=== PATIENT | female | born 1965 | race Caucasian/White ===

== ENCOUNTER 2020-03-25 15:04 | Outpatient (REF) | payer OTHER, SELFPAY ==
[2020-03-25 15:31] LABS: COVID-19 Test Positive (Negative)
== END 2020-03-25 15:05 | disposition home or self-care (01) ==
LOC: HO.LAB 15:04
PROVIDERS: Visit Provider Internal Medicine
DX: Z20.828 Contact with and (suspected) exposure to other viral communicable diseases (principal)
CPT/HCPCS: 87635

== ENCOUNTER 2020-06-06 12:38 | Outpatient (REF) | payer OTHER, SELFPAY ==
--- NOTE | 2020-06-06 12:48 | MM_ITS ---
EXAMINATION: MM DIAGNOSTIC DIGITAL BREAST TOMOSYNTHESIS, BILATERAL US DIAGNOSTIC ULTRASOUND BREAST, LEFT CLINICAL INFORMATION: 55-year-old with palpable nodule posterior outer left breast, uncertain chronicity. No prior breast imaging. No known family history breast cancer. The lifetime risk of breast cancer based on the Tyrer-Cuzick Model is 11%. COMPARISON: None (current study represents initial baseline exam). TECHNIQUE: Digital breast tomosynthesis is performed in both the craniocaudal and mediolateral oblique views along with computer-aided detection (CAD). Synthesized 2D images are generated from the tomosynthesis. Additional exaggerated left CC view is provided. Ultrasound left breast is targeted to the palpable nodule posterior outer left breast. Patient is able to point to the area of concern at time of imaging. FINDINGS: There are scattered areas of fibroglandular density (ACR BI-RADS breast composition Category b). There is a circumscribed nodule residing close to the skin surface at site of palpable concern posterior outer left breast measuring approximately 1.0 x 0.8 cm. The remainder of the breasts show no significant mass or architectural abnormality or abnormal calcifications. The axilla and skin contours are unremarkable. Ultrasound left breast demonstrates a circumscribed intradermal nodule mildly hypoechoic measuring 1.0 x 0.7 x 0.6 cm at 3:00 position 12 cm from nipple. There is a claw sign interface with the skin. No visible superficial stalk to skin surface. There is mild increased through-transmission of sound. No hyperemia. No edema tracking in soft tissue planes. Results are discussed with the patient at time of visit. The palpable nodule corresponds to an intradermal lesion, likely sebaceous cyst or epidermal cyst. If increasing in size, this would be amenable to surgical excision. Patient should be managed based on the clinical impression. MM/MM tomosynthesis diagnostic BI IMPRESSION: 1. Left: Circumscribed intradermal nodule 1 cm posterior outer breast corresponding to palpable area of concern and consistent with sebaceous cyst/epidermal cyst. 2. Right: No mammographic evidence of malignancy. ASSESSMENT: BI-RADS 2: Benign RECOMMENDATION: 1. Patient should be managed based on the clinical impression. 2. Otherwise, routine annual screening mammography. This patient's information was entered into a reminder system with a target due date for their next mammogram.
== END 2020-06-06 12:39 | disposition home or self-care (01) ==
LOC: HO.MAMMO 12:38
PROVIDERS: PCP Family Medicine; Visit Provider Family Medicine
DX: N63.23 Unspecified lump in the left breast, lower outer quadrant (principal)
CPT/HCPCS: 76642; 77062; 77066